=== PATIENT | female | born 1960 | race Caucasian/White ===

== ENCOUNTER 2017-07-25 09:34 | Inpatient (IN) | payer OTHER ==
[2017-07-25 10:37] LABS: ADD MAN DIFF? NO
[2017-07-25 10:40] LABS: BASOPHILS % 0.5 % (0.0-2.0); EOSINOPHILS # 0.1 10^3/ul (0.0-0.5); EOSINOPHILS % 1.1 % (0.0-7.0); HEMATOCRIT 39.9 % (37.0-47.0); HEMOGLOBIN 13.5 g/dl (12.0-16.0); LYMPHOCYTES # 1.2 10^3/ul (0.8-2.9); LYMPHOCYTES % 21.1 % (15.0-51.0); MEAN CORPUSCULAR HEMOGLOBIN 31.3 pg (29.0-33.0); MEAN CORPUSCULAR HGB CONC 33.8 g/dl (32.0-37.0); MEAN CORPUSCULAR VOLUME 92.6 fl (82.0-101.0); MEAN PLATELET VOLUME 9.1 fl (7.4-10.4); MONOCYTE # 0.3 10^3/ul (0.3-0.9); MONOCYTES % 5.6 % (0.0-11.0); NEUTROPHIL # 3.9 10^3/ul (1.6-7.5); NEUTROPHILS % 71.5 % (39.0-77.0); PLATELET COUNT 339 10^3/UL (140-415); RED BLOOD COUNT 4.31 10^6/ul (4.20-5.40); RED CELL DISTRIBUTION WIDTH 12.4 % (11.5-14.5)
[2017-07-25 10:40] LABS: WHITE BLOOD COUNT 5.5 10^3/ul (4.8-10.8)
[2017-07-25 10:59] LABS: ALANINE AMINOTRANSFERASE 27 IU/L (13-69); ALBUMIN/GLOBULIN RATIO 1.42; ALKALINE PHOSPHATASE 87 IU/L (42-121); ANION GAP 14 (8-16); ASPARTATE AMINO TRANSFERASE 25 IU/L (15-46); BILIRUBIN,INDIRECT 0.9 mg/dl (0-1.1); BILIRUBIN,TOTAL 0.9 mg/dl (0.2-1.3); CARBON DIOXIDE 31 mmol/L (21-31); CHLORIDE 104 mmol/L (97-110); GLUCOSE 113 mg/dl (70-220); TOTAL PROTEIN 8.5 g/dl (6.1-8.1)
[2017-07-25 11:00] LABS: BLOOD UREA NITROGEN 7 mg/dl (7-20); CREATININE 0.74 mg/dl (0.44-1.00); POTASSIUM 4.3 mmol/L (3.5-5.1); SODIUM 145 mmol/L (135-144)
[2017-07-25 11:16] LABS: INR 1.09; PROTIME 14.2 Sec (11.9-14.9); PT RATIO 1.1
[2017-07-25 11:22] LABS: PARTIAL THROMBOPLASTIN TIME 37.6 Sec (25.0-35.0)
[2017-07-25] MEDS ORDERED: SOD CHLORIDE 0.9% 1,000 ML IV (12:00)
[2017-07-25] MEDS: CEFAZOLIN 1 GM/50 ML (PMX) 50 ML IVPB (12:00)
[2017-07-25] MEDS ORDERED: MIDAZOLAM 1 MG/ML 2 ML INJ (12:42)
[2017-07-25] MEDS ORDERED: LIDOCAINE 2% (SDV) 5 ML INJ (14:04)
[2017-07-25] MEDS ORDERED: PROPOFOL 20 ML (14:04)
[2017-07-25] MEDS ORDERED: CEFAZOLIN 1 GM INJ (14:04)
[2017-07-25] MEDS ORDERED: ONDANSETRON 4 MG INJ (14:05)
[2017-07-25] MEDS ORDERED: ACETAMINOPHEN 1000MG/100ML IV 100 ML IVPB (14:30)
[2017-07-25] MEDS ORDERED: morphine 2 MG INJ IV (14:30)
[2017-07-25] MEDS ORDERED: HYDROCODONE/APAP (5/325) TAB PO (17:00)
[2017-07-25] MEDS ORDERED: ONDANSETRON 4 MG INJ IV (17:00)
[2017-07-25] MEDS ORDERED: ACETAMINOPHEN 500 MG TAB PO (17:00)
[2017-07-25] MEDS: D5W-0.45 NACL + KCL 20 MEQ 1,000 ML IV ×2 (17:07→22:14)
[2017-07-26] MEDS: D5W-0.45 NACL + KCL 20 MEQ 1,000 ML IV ×3 (00:21→14:14)
== END 2017-07-26 15:20 | disposition home or self-care (01) | DRG 583 ==
LOC: REC 09:34 → MS1 15:32
PROC: 0HTU0ZZ Resection of Left Breast, Open Approach (ICD-10-PCS; principal; 2017-07-25 12:00)
DX: C50.912 Malignant neoplasm of unspecified site of left female breast (principal)
CPT/HCPCS: 71045; 80053; 85025; 85610; 85730; 88307; 93005